=== PATIENT | male | born 1950 | race Caucasian/White ===

== ENCOUNTER → 2018-08-25 | Outpatient (CLI) | payer MEDICARE, OTHER ==
[~2018-08-25] MED LIST: ADVAIR 250-501 EACH INH; ASPIR 8181 MG PO; ATENOLOL 100MG100 MG PO; ATENOLOL 50MG T50 M1 PO; BACTRIM DS TAB1 EACH PO; BUPROPION HCL150 M1 PO; CLEOCIN HCL300 MG PO; COZAAR 50 MG TA50 MG PO; COZAAR100 MG PO; EFFIENT10 MG PO; FOLIC ACID1 MG PO; HYDROCHLOROTHIA25 M2 PO; HYDROCODON-ACE1 EAC5 PO; IBUPROFEN 800800 M1 PO; INDOMETHACIN 5050 MG PO; KEFLEX500 MG PO; LEVAQUIN 500 M500 M1 PO; LEVAQUIN 750 M750 MG PO; LIPITOR 20 MG T20 M1 PO; METHOCARBAMOL750 MG PO; NITROGLYCERIN0.4 MG SUBLING; PERCOCET 5-3251 EACH PO; PREDNISONE 10 M10 MG PO; PROTONIX40 M1 PO; PROVENTIL; ROBAXIN 750 MG750 M1 PO; SERTRALINE HCL100 MG PO; SINGULAIR 10 MG10 M1 PO; VENTOLIN HFA 1818 GM INH; VENTOLIN17 GM; VITAMIN B-1100 M1 PO; ZOLOFT25 MG PO
--- NOTE | 2018-08-25 13:09 | 2DMMODE ---
[place] [address] 2 D/M-MODE ECHOCARDIOGRAM Name: RAJENDRA MARTIN Room: [facility]#: [id number] Admission: 08/25/18 Attend Phys: Tomás Guerin, Discharge: Date of : 52 Date of Service: 08/25/18 1309 Report #: [id number] THIS REPORT FOR: //name// APPROVED REPORT Study performed: 08/25/2018 09:55:49 EXAM: Comprehensive 2D, Doppler, and color-flow Echocardiogram Patient Location: Out-Patient Status: routine BSA: 2.11 HR: 73 bpm BP: 117/69 mmHg Other Information Study Quality: Fair Indications Dyspnea 2D Dimensions IVSd: 11.04 (7-11mm) LVOT Diam: 20.78 (18-24mm) LVDd: 42.67 mm PWd: 10.40 (7-11mm) Ascending Ao: 30.97 (22-36mm) LVDs: 25.95 (25-40mm) Aortic Root: 25.83 mm Volumes Left Atrial Volume (Systole) LA ESV Index: 14.40 mL/m2 Aortic Valve AoV Peak Javier.: 1.44 m/s AO Peak Gr.: 8.25 mmHg LVOT Max P.90 mmHg AO Mean Gr.: 4.79 mmHg LVOT Mean P.11 mmHg LVOT Max V: 1.11 m/s AO V2 VTI: 29.39 cm LVOT Mean V: 0.66 m/s DANY (VTI): 2.62 cm2 LVOT V1 VTI: 22.74 cm Mitral Valve E/A Ratio: 0.86 MV Decel. Time: 211.34 ms MV E Max Javier.: 0.73 m/s MV PHT: 61.29 [place] [address] 2 D/M-MODE ECHOCARDIOGRAM Name: RAJENDRA MARTIN Room: [facility]#: [id number] Admission: 08/25/18 Attend Phys: Tomás Guerin, Discharge: Date of : 52 Date of Service: 08/25/18 1309 Report #: [id number] MVA (PHT): 3.59 cm2 TDI E/Lateral E': 8.11 E/Medial E': 8.11 Medial E' Javier.: 0.09 m/s Lateral E' Javier.: 0.09 m/s Pulmonary Valve PV Peak Javier.: 1.00 m/s PV Peak Gr.: 4.02 mmHg Left Ventricle The left ventricle is normal size. There is normal LV segmental wall motion. There is normal left ventricular wall thickness. Left ventricular systolic function is normal. The left ventricular ejection fraction is within the normal range. LVEF is 55-60%. Grade I - abnormal relaxation pattern. Right Ventricle The right ventricle is normal size. The right ventricular systolic function is normal. Atria The left atrium size is normal. The right atrium size is normal. Aortic Valve The aortic valve is normal in structure. No aortic regurgitation is present. There is no aortic valvular stenosis. Mitral Valve The mitral valve is normal in structure. Trace mitral regurgitation. No evidence of mitral valve stenosis. Tricuspid Valve The tricuspid valve is normal in structure. Trace tricuspid regurgitation. Pulmonic Valve The pulmonary valve is normal in structure. There is no pulmonic valvular regurgitation. Great Vessels The aortic root is normal in size. IVC is normal in size and collapses >50% with inspiration[place] [address] 2 D/M-MODE ECHOCARDIOGRAM Name: RAJENDRA MARTIN Room: [facility]#: [id number] Admission: 08/25/18 Attend Phys: Tomás Guerin, Discharge: Date of : 52 Date of Service: 08/25/18 1309 Report #: [id number] There is no pericardial effusion. <Conclusion> Left ventricular systolic function is normal. The left ventricular ejection fraction is within the normal range. <ELECTRONICALLY SIGNED> By: Luis Montenegro MD, [facility] 08/25/18 1309 1309 Luis Montenegro MD, [facility] /INF
== END ==
LOC: M.CRD 09:42
DX: I25.10 Atherosclerotic heart disease of native coronary artery without angina pectoris (principal); I95.1 Orthostatic hypotension

== ENCOUNTER 2019-07-26 17:53 | Emergency (ER) | payer MEDICARE, OTHER ==
[~2019-07-26] VITALS: Ht 175.3 cm; Wt 86.2 kg
[2019-07-26] MEDS ORDERED: SINGULAIR 10 MG10 M1 PO (18:05)
[2019-07-26] MEDS ORDERED: LEVOXYL125 MCG PO (18:05)
[2019-07-26 18:31] LABS: ABSOLUTE EOSINOPHILS 0.8 thou/uL (0.0-0.7); ABSOLUTE LYMPHOCYTES 3.4 thou/uL (0.8-5.3); ABSOLUTE MONOCYTES 0.8 thou/uL (0.0-1.2); ABSOLUTE NEUTROPHILS 5.4 thou/uL (1.6-8.1); BASOPHILS 0.1 %; EOSINOPHILS 7.8 %; HEMATOCRIT 47.7 % (42.0-52.0); HEMOGLOBIN 16.8 gm/dL (14.0-18.0); LYMPHOCYTES 32.6 %; MCH 32.5 pg (26.0-34.0); MCHC 35.3 g/dL (28.0-37.0); MCV 92.2 fL (80.0-100.0); MONOCYTES 7.9 %; MPV 7.4 fl. (7.2-11.1); NUCLEATED RBCS 0 /100WBC; PLATELET COUNT* 267 thou/uL (150-400); POLYS 51.6 %; RBC 5.17 mil/uL (4.50-6.00); RDW-CV 14.8 % (10.5-14.5); WBC 10.5 thou/uL (4.0-11.0)
[2019-07-26 18:40] LABS: CALCIUM 8.5 mg/dL (8.5-10.1); CREATININE 1.5 mg/dL (0.6-1.3); POTASSIUM 4.3 mmol/L (3.5-5.1)
[2019-07-26 18:51] LABS: ALBUMIN 3.8 g/dL (3.4-5.0); TOTAL BILIRUBIN 0.5 mg/dL (<0.1-1.0); TOTAL PROTEIN 7.2 g/dL (6.4-8.2)
[2019-07-26] MEDS ORDERED: PREDNISONE50 MG PO (21:19)
[2019-07-26 21:42] VITALS: BP 155/58
--- NOTE | 2019-07-27 10:36 | EKG ---
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1950 Requested By: Nawaf Bueno Order Number: [id number] MD: Antwan Rivers Measurements Intervals [place] Rate: 91 P: 5 [place]: 160 QRS: 81 QRSD: 133 T: 51 QT: 409 QTc: 504 Interpretive Statements Sinus rhythm Nonspecific intraventricular conduction delay Anteroseptal infarct, age indeterminate possible Baseline wander in lead(s) II,III,aVF Compared to ECG 08/21/2016 17:43:17 Intraventricular conduction delay now present Myocardial infarct finding now present Electronically Signed On 07-27-2019 10:36:33 CATERING SOUS CHEF by Antwan Rivers [email or web address] <ELECTRONICALLY SIGNED> By: Antwan Rivers MD, [facility] 07/27/19 1036 1829 1829 Antwan Rivers MD, [facility] /EPI
== END 2019-07-26 21:45 | disposition home or self-care (01) ==
LOC: M.ERS 17:53
PROVIDERS: Emergency Medicine
DX: J44.1 Chronic obstructive pulmonary disease with (acute) exacerbation (principal); I10 Essential (primary) hypertension; M10.9 Gout, unspecified; G89.29 Other chronic pain; M54.9 Dorsalgia, unspecified; Z88.1 Allergy status to other antibiotic agents; Z88.5 Allergy status to narcotic agent; Z91.040 Latex allergy status; Z88.6 Allergy status to analgesic agent

== ENCOUNTER 2019-09-01 10:25 | Inpatient (IN) | payer MEDICARE, OTHER ==
[~2019-09-01] VITALS: Ht 175.3 cm; Wt 93.4 kg
[2019-09-01] VITALS (10 sets, daily range): BP systolic 135–187; BP diastolic 85–118
[~2019-09-01 10:25] MED LIST changes: +LEVOXYL125 MCG PO; +PREDNISONE50 MG PO
[2019-09-01 11:04] LABS: ABSOLUTE BASOPHILS 0.1 thou/uL (0.0-0.2); ABSOLUTE EOSINOPHILS 0.2 thou/uL (0.0-0.7); ABSOLUTE LYMPHOCYTES 1.5 thou/uL (0.8-5.3); ABSOLUTE MONOCYTES 0.9 thou/uL (0.0-1.2); ABSOLUTE NEUTROPHILS 11.2 thou/uL (1.6-8.1); BASOPHILS 0.7 %; EOSINOPHILS 1.2 %; HEMATOCRIT 50.7 % (42.0-52.0); HEMOGLOBIN 17.5 gm/dL (14.0-18.0); LYMPHOCYTES 11.1 %; MCH 32.3 pg (26.0-34.0); MCHC 34.6 g/dL (28.0-37.0); MCV 93.5 fL (80.0-100.0); MONOCYTES 6.5 %; MPV 7.1 fl. (7.2-11.1); NUCLEATED RBCS 0 /100WBC; PLATELET COUNT* 265 thou/uL (150-400); POLYS 80.5 %; RBC 5.43 mil/uL (4.50-6.00); RDW-CV 14.5 % (10.5-14.5); WBC 13.9 thou/uL (4.0-11.0)
[2019-09-01 11:23] LABS: CREATININE 1.1 mg/dL (0.6-1.3); POTASSIUM 3.4 mmol/L (3.5-5.1)
[2019-09-01 11:27] LABS: ALBUMIN 3.7 g/dL (3.4-5.0); TOTAL BILIRUBIN 0.5 mg/dL (<0.1-1.0); TOTAL PROTEIN 7.2 g/dL (6.4-8.2)
[2019-09-01 13:10] LABS: INFLUENZA A ANTIGEN Negative (Negative); INFLUENZA B ANTIGEN Negative (Negative)
[2019-09-01 14:58] LABS: PCO2 42.3 mmHg (35.0-45.0); PO2 85.6 mmHg (75.0-100.0); pH 7.367 (7.340-7.450)
[2019-09-01 14:59] LABS: BE -1.6 mmol/L (-2 to +3)
--- NOTE | 2019-09-01 15:22 | EKG ---
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1950 Requested By: Nawaf Bueno Order Number: [id number] MD: Luis Montenegro Measurements Intervals [place] Rate: 123 P: 112 [place]: 169 QRS: 103 QRSD: 108 T: 51 QT: 291 QTc: 417 Interpretive Statements Sinus tachycardia Right axis deviation artifact noted poor r wave progression Compared to ECG 07/26/2019 18:29:13 Sinus rhythm no longer present Intraventricular conduction delay no longer present Electronically Signed On 09-01-2019 15:22:31 PATIENT SCHEDULING MANAGER by Luis Montenegro [email or web address] <ELECTRONICALLY SIGNED> By: Luis Montenegro MD, FAC 09/01/19 1522 1042 1042 Luis Montenegro MD, [facility] /EPI
[2019-09-01] MEDS ORDERED: ABILIFY 5 MG TAB5 MG PO (15:50)
[2019-09-01] MEDS ORDERED: CELEBREX100 MG/1 C PO (15:51)
[2019-09-01] MEDS ORDERED: CHILDREN'S ZYRT10 M1 PO (15:52)
[2019-09-01] MEDS ORDERED: FLOMAX0.4 MG PO (15:53)
[2019-09-01] MEDS ORDERED: NEXIUM40 MG PO (15:53)
[2019-09-01] MEDS ORDERED: INCRUSE ELLI62.5 MCG INH (15:54)
--- NOTE | 2019-09-01 16:43 | 2DMMODE ---
[place] [address] 2 D/M-MODE ECHOCARDIOGRAM Name: RAJENDRA MARTIN Room: [address] IN [facility]#: [id number] Admission: 09/01/19 Attend Phys: Enriqueta Sexton, Discharge: Date of : 52 Date of Service: 09/01/19 1643 Report #: [id number] THIS REPORT FOR: //name// APPROVED REPORT Study performed: 09/01/2019 14:29:01 EXAM: Comprehensive 2D, Doppler, and color-flow Echocardiogram Patient Location: In-Patient Room #: ER Status: routine BSA: 2.10 HR: 99 bpm BP: 139/79 mmHg Rhythm: NSR Other Information Study Quality: Good Indications Elevated Troponin 2D Dimensions IVSd: 10.88 (7-11mm) LVOT Diam: 22.48 (18-24mm) LVDd: 36.67 mm PWd: 11.84 (7-11mm) Ascending Ao: 29.41 (22-36mm) LVDs: 22.99 (25-40mm) Aortic Root: 33.71 mm Volumes Left Atrial Volume (Systole) LA ESV Index: 14.90 mL/m2 Aortic Valve AoV Peak Javier.: 1.45 m/s AO Peak Gr.: 8.46 mmHg LVOT Max P.48 mmHg AO Mean Gr.: 4.96 mmHg LVOT Mean P.18 mmHg LVOT Max V: 1.06 m/s AO V2 VTI: 23.41 cm LVOT Mean V: 0.68 m/s DANY (VTI): 3.10 cm2 LVOT V1 VTI: 18.30 cm Mitral Valve E/A Ratio: 0.64 MV Decel. Time: 217.42 ms MV E Max Javier.: 0.76 m/[place] [address] 2 D/M-MODE ECHOCARDIOGRAM Name: RAJENDRA MARTIN Room: [address] IN .R.#: [id number] Admission: 09/01/19 Attend Phys: Enriqueta Sexton, Discharge: Date of : 52 Date of Service: 09/01/19 1643 Report #: [id number] MV PHT: 63.05 ms MVA (PHT): 3.49 cm2 TDI E/Lateral E': 8.44 E/Medial E': 9.50 Medial E' Javier.: 0.08 m/s Lateral E' Javier.: 0.09 m/s Pulmonary Valve PV Peak Javier.: 1.23 m/s PV Peak Gr.: 6.01 mmHg Left Ventricle The left ventricle is normal size. There is normal LV segmental wall motion. There is normal left ventricular wall thickness. Left ventricular systolic function is hyperdynamic. LVEF is >70%. Transmitral Doppler flow pattern suggests impaired LV relaxation. Right Ventricle The right ventricle is normal size. The right ventricular systolic function is normal. Atria The left atrium size is normal. The right atrium size is normal. Aortic Valve The aortic valve is normal in structure. No aortic regurgitation is present. There is no aortic valvular stenosis. Mitral Valve The mitral valve is normal in structure. Trace mitral regurgitation. No evidence of mitral valve stenosis. Tricuspid Valve The tricuspid valve is normal in structure. There is no tricuspid valve regurgitation noted. Unable to assess PA pressure. Pulmonic Valve Pulmonic valve is not well visualized. There is no pulmonic valvular regurgitation. Great Vessels The aortic root is normal in size. The ascending aorta is normal in size. IVC is normal in size and collapses >50% [place] [address] 2 D/M-MODE ECHOCARDIOGRAM Name: RAJENDRA MARTNI MINISTERIO Room: [address] IN [facility]#: [id number] Admission: 09/01/19 Attend Phys: Enriqueta Sexton, Discharge: Date of : 52 Date of Service: 09/01/19 1643 Report #: [id number] Pericardium There is no pericardial effusion. <Conclusion> The left ventricle is normal size. There is normal left ventricular wall thickness. Left ventricular systolic function is hyperdynamic. LVEF is >70%. Trace mitral regurgitation. IVC is normal in size and collapses >50% with inspiration. <ELECTRONICALLY SIGNED> By: Tomás Guerin MD, FACC 09/01/19 1643 164 164 Tomás Guerin MD, FACC /INF
[2019-09-02] VITALS (9 sets, daily range): BP systolic 112–151; BP diastolic 65–95
[2019-09-02 07:15] LABS: CHOLESTEROL 159 mg/dL (<200); HDL CHOLESTEROL 69 mg/dL (>40); LDL CHOLESTEROL 77 mg/dL (<100); SERUM ASSESSMENT Clear; TC:HDL 2.3 Ratio (Not establshd); TRIGLYCERIDE 66 mg/dL (<150); VLDL 13 mg/dL (<40)
--- NOTE | 2019-09-02 17:15 | CARDNUC ---
[place] [address] CARDIAC NUCLEAR IMAGING REPORT Name: RAJENDRA MARTIN Room: [address] IN [facility]#: [id number] Admission: 09/01/19 Attend Phys: Enriqueta Sexton, Discharge: Date of : 52 Date of Service: 09/02/19 1714 Report #: [id number] THIS REPORT FOR: //name// APPROVED REPORT Imaging Protocol: Rest Tc-99m/Stress Tc-99m 1 day Study performed: 09/01/2019 16:15:00 Indication: Troponin elevation Patient Location: In-Patient Room #: icu-3 Stress Tech: Jing Lugo Stress Nurse: Yuliet Giles RN Ht: 5 ft 9 in Wt: 206 lbs BSA: 2.09 m2 BMI: 30.41 Medical History Medical History: CAD non obstructive, COPD, Hyperlipidemia, HTN Medications: asa-81, atorvastatin, losartan Allergies: latex, morphine, tetracycline, levofloxacin Cardiac Risk Factors: Age, Hyperlipidemia, HTN, Tobacco History (Former) Resting Data Rest SPECT myocardial perfusion imaging was performed in supine position 60 minutes following the intravenous injection of 10.54 mCi of Tc-99m Sestamibi. Time of rest injection: 09:45 The images were gated to evaluate regional wall motion and calculate left ventricular ejection fraction. Administration Route: IV Administration Site: Right AC Pharmacologic Stress Pharmacologic stress test was performed by injecting Regadenoson 0.4 mg IV push over 10-15 seconds immediately followed by the intravenous injection of 33.1 mCi of Tc-99m Sestamibi. Time of stress injection: 12:15 Administration Route: IV Administration Site: Right AC Heart Rate at time of stress injection: 118 bpm. Gated Stress SPECT was performed 60 [place] [address] CARDIAC NUCLEAR IMAGING REPORT Name: RAJENDRA MARTIN Room: [address] IN ..#: [id number] Admission: 09/01/19 Attend Phys: Enriqueta Sexton, Discharge: Date of : 52 Date of Service: 09/02/19 1714 Report #: [id number] The images were gated to evaluate regional wall motion and calculate left ventricular ejection fraction. Stress Test Details Stress Test: Pharmacologic stress testing performed using 0.4 mg of regadenoson per 5 mL given IV over 10 seconds. Reason for pharmacologic stress test: physical limitation. HR Max Heart Rate (APMHR): 152 bpm Resting HR: 94 bpm Target HR (85% APMHR): 129 bpm Max HR Achieved: 118 bpm % of APMHR: 77 Recovery HR: 108 bpm BP Resting BP: 145/81 mmHg Max BP: 162/119 mmHg Recovery BP: 157/86 mmHg ECG Resting ECG: Sinus Rhythm Stress ECG: Sinus Tachycardia ST Change: None Arrhythmia: None Recovery ECG: Sinus Rhythm Recovery ST Change: None Recovery Arrhythmia: None Clinical Reason for Termination: Completed protocol The patient tolerated Lexiscan infusion without significant cardiac symptoms. Stress ECG Conclusion Baseline 12-lead EKG show sinus rhythm without significant ST segment or T wave abnormality. EKGs obtained during and post Lexiscan infusion show sinus rhythm and sinus tachycardia with no significant ST segment or T wave changes when compared baseline. There were no significant stress-induced arrhythmias. Study Quality Study: Good Artifact: No artifact Study Data At rest, the left ventricular ejection fraction was 85%.. Post stress, the left ventricular ejection was 85%.. [place] [address] CARDIAC NUCLEAR IMAGING REPORT Name: RAJENDRA MARTIN Room: [address]#: [id number] Admission: 09/01/19 Attend Phys: Enriqueta Sexton, Discharge: Date of : 52 Date of Service: 09/02/19 1714 Report #: [id number] TID = 1.33. Perfusion There is a moderate size moderate intensity reversible defect involving the basal to mid inferior wall. No other significant defects were identified. Wall Motion There is focal hypokinesis noted the basal portion the inferior wall. Global LV systolic function is preserved. Nuclear Conclusion ECG Findings: negative for ischemia Clinical Findings: negative for ischemia Nuclear Findings: positive for ischemia Exercise Capacity: not assessed Left Ventricular Function: preserved Risk Study: moderate Perfusion images suggest stress-induced ischemia involving the basal to mid inferior wall area global LV systolic function is fairly well-preserved. His is a moderate risk study. <Conclusion> Baseline 12-lead EKG show sinus rhythm without significant ST segment or T wave abnormality. EKGs obtained during and post Lexiscan infusion show sinus rhythm and sinus tachycardia with no significant ST segment or T wave changes when compared baseline. There were no significant stress-induced arrhythmias. <ELECTRONICALLY SIGNED> By: Tomás Guerin MD, FACC 09/02/19 1714 171 171 Tomás Guerin MD, FACC /INF
[2019-09-03 03:50] VITALS: BP 156/98
[2019-09-03 04:43] LABS: HEMATOCRIT 46.8 % (42.0-52.0); HEMOGLOBIN 15.8 gm/dL (14.0-18.0); MCH 31.9 pg (26.0-34.0); MCHC 33.7 g/dL (28.0-37.0); MCV 94.8 fL (80.0-100.0); MPV 7.1 fl. (7.2-11.1); RBC 4.94 mil/uL (4.50-6.00)
[2019-09-03 05:05] LABS: CALCIUM 9.2 mg/dL (8.5-10.1); CREATININE 1.4 mg/dL (0.6-1.3); POTASSIUM 4.1 mmol/L (3.5-5.1); TROPONIN-I LEVEL 0.06 ng/mL (<0.06)
[2019-09-03 07:23] VITALS: BP 157/91
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
[2019-09-03 12:24] VITALS: BP 154/83
[2019-09-03 15:54] VITALS: BP 138/74
[2019-09-03 20:00] VITALS: BP 169/96
[2019-09-04] VITALS: BP 177/94
[2019-09-04 04:00] VITALS: BP 157/82
[2019-09-04 05:14] LABS: HEMATOCRIT 47.1 % (42.0-52.0); MCH 31.9 pg (26.0-34.0); MCV 93.8 fL (80.0-100.0); MPV 6.8 fl. (7.2-11.1); RBC 5.02 mil/uL (4.50-6.00); RDW-CV 14.9 % (10.5-14.5); WBC 15.6 thou/uL (4.0-11.0)
[2019-09-04 05:33] LABS: CALCIUM 8.8 mg/dL (8.5-10.1); CREATININE 1.3 mg/dL (0.6-1.3); MAGNESIUM 2.4 mg/dL (1.8-2.4); POTASSIUM 4.4 mmol/L (3.5-5.1)
[2019-09-04 07:15] VITALS: BP 163/97
[2019-09-04 11:28] VITALS: BP 139/79
[2019-09-04 16:18] VITALS: BP 127/84
[2019-09-04 20:00] VITALS: BP 154/75
[2019-09-05] VITALS: BP 144/87
[2019-09-05 04:00] VITALS: BP 149/82
[2019-09-05 10:24] LABS: HEMATOCRIT 49.7 % (42.0-52.0); HEMOGLOBIN 17.1 gm/dL (14.0-18.0); MCH 32.1 pg (26.0-34.0); MCHC 34.4 g/dL (28.0-37.0); MCV 93.3 fL (80.0-100.0); MPV 6.9 fl. (7.2-11.1); NUCLEATED RBCS 0 /100WBC; PLATELET COUNT* 331 thou/uL (150-400); RBC 5.33 mil/uL (4.50-6.00); RDW-CV 14.5 % (10.5-14.5); WBC 15.2 thou/uL (4.0-11.0)
[2019-09-05 10:33] LABS: CALCIUM 9.1 mg/dL (8.5-10.1); CREATININE 1.5 mg/dL (0.6-1.3); POTASSIUM 4.5 mmol/L (3.5-5.1)
[2019-09-05 10:50] LABS: ABSOLUTE EOSINOPHILS 0.2 thou/uL (0.0-0.7); ABSOLUTE LYMPHOCYTES 0.9 thou/uL (0.8-5.3); ABSOLUTE MONOCYTES 0.8 thou/uL (0.0-1.2); ABSOLUTE NEUTROPHILS 13.4 thou/uL (1.6-8.1)
[2019-09-05 10:51] LABS: ANISOCYTOSIS 1+; PLATELET ESTIMATE ADEQUATE; POIKILOCYTOSIS 1+
[2019-09-05 12:03] VITALS: BP 146/88
[2019-09-05 17:07] VITALS: BP 140/79
[2019-09-05 20:00] VITALS: BP 137/86
[2019-09-06] VITALS: BP 158/82
[2019-09-06 05:18] LABS: ABSOLUTE BASOPHILS 0.1 thou/uL (0.0-0.2); ABSOLUTE LYMPHOCYTES 1.8 thou/uL (0.8-5.3); ABSOLUTE MONOCYTES 0.8 thou/uL (0.0-1.2); ABSOLUTE NEUTROPHILS 14.6 thou/uL (1.6-8.1); BASOPHILS 0.5 %; HEMATOCRIT 50.7 % (42.0-52.0); HEMOGLOBIN 17.7 gm/dL (14.0-18.0); LYMPHOCYTES 10.3 %; MCH 32.6 pg (26.0-34.0); MCV 93.2 fL (80.0-100.0); MONOCYTES 4.9 %; MPV 6.6 fl. (7.2-11.1); NUCLEATED RBCS 0 /100WBC; PLATELET COUNT* 344 thou/uL (150-400); POLYS 84.3 %; RBC 5.43 mil/uL (4.50-6.00); RDW-CV 14.3 % (10.5-14.5); WBC 17.3 thou/uL (4.0-11.0)
[2019-09-06 05:33] LABS: CREATININE 1.6 mg/dL (0.6-1.3); POTASSIUM 5.2 mmol/L (3.5-5.1)
[2019-09-06 08:00] VITALS: BP 156/91
[2019-09-06 12:07] VITALS: BP 100/62
[2019-09-06 19:40] VITALS: BP 154/93
[2019-09-07 00:54] VITALS: BP 120/66; BP 141/84
[2019-09-07 04:00] VITALS: BP 131/90
[2019-09-07 07:40] VITALS: BP 161/104
[2019-09-07] MEDS ORDERED: AZITHROMYCIN 2250 MG PO (08:01)
[2019-09-07] MEDS ORDERED: ASPIRIN325 PO (08:01)
[2019-09-07] MEDS ORDERED: CEFDINIR300 MG PO (08:01)
[2019-09-07] MEDS ORDERED: PREDNISONE 10 M10 MG PO (08:01)
[2019-09-07] MEDS ORDERED: MUCINEX600 MG PO (08:01)
[2019-09-07 10:11] VITALS: BP 161/104
[2019-09-07 14:09] VITALS: BP 161/104
== END 2019-09-07 14:10 | disposition home or self-care (01) | DRG 177 ==
LOC: M.ERS 10:25 → M.ICU 11:49 → M.TBA-ER 11:49 → M.ICU 15:13 → M.2W 09-02 17:00 → M.ORTHSURG 09-06 17:42
PROVIDERS: Emergency Medicine; Internal Medicine; Internal Medicine Cardiovascular Disease; ADMIT Internal Medicine
DX: J15.6 Pneumonia due to other Gram-negative bacteria (principal); I21.A1 Myocardial infarction type 2; J96.21 Acute and chronic respiratory failure with hypoxia; J44.1 Chronic obstructive pulmonary disease with (acute) exacerbation; J44.0 Chronic obstructive pulmonary disease with (acute) lower respiratory infection; M54.9 Dorsalgia, unspecified; G89.29 Other chronic pain; I10 Essential (primary) hypertension; M10.9 Gout, unspecified; E78.5 Hyperlipidemia, unspecified; J40 Bronchitis, not specified as acute or chronic; I25.119 Atherosclerotic heart disease of native coronary artery with unspecified angina pectoris; Z79.899 Other long term (current) drug therapy; Z88.5 Allergy status to narcotic agent; Z88.8 Allergy status to other drugs, medicaments and biological substances; Z88.1 Allergy status to other antibiotic agents; Z91.040 Latex allergy status; Z23 Encounter for immunization

== ENCOUNTER 2020-03-13 10:29 | Observation (INO) | payer MEDICARE, OTHER ==
[2020-03-13] VITALS (12 sets, daily range): BP systolic 124–181; BP diastolic 76–104
[~2020-03-13] VITALS: Ht 175.3 cm; Wt 87.1 kg
[~2020-03-13 10:29] MED LIST changes: +ABILIFY 5 MG TAB5 MG PO; +ASPIRIN325 PO; +AZITHROMYCIN 2250 MG PO; +CEFDINIR300 MG PO; +CELEBREX100 MG/1 C PO; +CHILDREN'S ZYRT10 M1 PO; +COZAAR 25 MG TA25 MG PO; +DYAZIDE 37.5-21 EACH PO; +FLOMAX0.4 MG PO; +INCRUSE ELLI62.5 MCG INH; +MUCINEX600 MG PO; +NEXIUM40 MG PO; +SYNTHROID25 MC1 PO
[2020-03-13 10:56] LABS: HEMATOCRIT 55.2 % (42.0-52.0); HEMOGLOBIN 18.8 gm/dL (14.0-18.0); MCH 32.1 pg (26.0-34.0); MCHC 34.1 g/dL (28.0-37.0); MCV 94.3 fL (80.0-100.0); MPV 7.5 fl. (7.2-11.1); RBC 5.85 mil/uL (4.50-6.00); RDW-CV 13.7 % (10.5-14.5); WBC 22.3 thou/uL (4.0-11.0)
[2020-03-13 11:09] LABS: ANION GAP 2 mmol/L (7-16); BUN 16 mg/dL (7-18); CALCIUM 9.4 mg/dL (8.5-10.1); CHLORIDE 101 mmol/L (98-107); CO2 37 mmol/L (21-32); CREATININE 1.3 mg/dL (0.6-1.3); GLUCOSE 80 mg/dL (70-99); POTASSIUM 3.5 mmol/L (3.5-5.1); SODIUM 140 mmol/L (136-145)
[2020-03-13 11:10] LABS: APTT 22.6 Seconds (25.0-31.3); PROTIME 10.6 Seconds (9.20-11.50)
[2020-03-13 11:13] LABS: ALBUMIN 3.7 g/dL (3.4-5.0); ALKALINE PHOSPHATASE 89 U/L (46-116); CHOLESTEROL 201 mg/dL (<200); HDL CHOLESTEROL 84 mg/dL (>40); LDL CHOLESTEROL 77 mg/dL (<100); SGOT 10 U/L (15-37); SGPT 30 U/L (30-65); TC:HDL 2.4 Ratio (Not establshd); TOTAL BILIRUBIN 0.4 mg/dL (<0.1-1.0); TOTAL PROTEIN 7.2 g/dL (6.4-8.2); TRIGLYCERIDE 201 mg/dL (<150); VLDL 40 mg/dL (<40)
[2020-03-13 11:15] LABS: SERUM ASSESSMENT Clear
--- NOTE | 2020-03-13 19:18 | EKG ---
[place] [address] ELECTROCARDIOGRAM REPORT Name: RAJENDRA MARTIN Room: [address] M.R.#: [id number] Admission: 03/13/20 Attend Phys: Tomás Guerin, Discharge: Date of : 52 Date of Service: 03/13/20 1104 Report #: [id number] THIS REPORT FOR: //name// [facility] Test Date: 2020-03-13 Test Time: 11:04:50 Pat Name: RAJENDRA MARTIN Department: Room: 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 : 1950 Requested By: Tomás Guerin Order Number: [id number] Reading MD: Tomás Guerin Measurements Intervals [place] Rate: 75 P: 54 [place]: 142 QRS: 81 QRSD: 98 T: 54 QT: 377 QTc: 421 Interpretive Statements Sinus rhythm Borderline right axis deviation Borderline low voltage, extremity leads Compared to ECG 09/01/2019 10:42:36 Sinus tachycardia no longer present Poor R-wave progression no longer present Electronically Signed On 03-13-2020 17:44:01 CDT by Tomás Guerin [email or web address] <ELECTRONICALLY SIGNED> By: Tomás Guerin MD, FACC 03/13/20 1744 1104 1104 Tomás Guerin MD, FAC /EPI
[2020-03-14] VITALS: BP 139/83
[2020-03-14 04:00] VITALS: BP 151/95
[2020-03-14 04:49] LABS: HEMATOCRIT 46.7 % (42.0-52.0); MCH 32.7 pg (26.0-34.0); MCHC 34.7 g/dL (28.0-37.0); MCV 94.1 fL (80.0-100.0); MPV 7.1 fl. (7.2-11.1); RBC 4.96 mil/uL (4.50-6.00); RDW-CV 13.4 % (10.5-14.5); WBC 13.2 thou/uL (4.0-11.0)
[2020-03-14 04:57] LABS: HEMOGLOBIN 16.2 gm/dL (14.0-18.0)
[2020-03-14 05:21] LABS: ALBUMIN 2.9 g/dL (3.4-5.0); CALCIUM 8.1 mg/dL (8.5-10.1); CREATININE 1.2 mg/dL (0.6-1.3); POTASSIUM 3.6 mmol/L (3.5-5.1); TOTAL BILIRUBIN 0.4 mg/dL (<0.1-1.0); TOTAL PROTEIN 5.6 g/dL (6.4-8.2)
[2020-03-14 08:36] VITALS: BP 117/77
[2020-03-14] MEDS ORDERED: ASPIR 8181 MG PO (08:37)
[2020-03-14] MEDS ORDERED: EFFIENT10 MG PO (08:37)
--- NOTE | 2020-03-14 09:21 | NUR ---
ASSUMED CARE OF PT THIS AM AROUND 0715- SERVICE AIDE IN PLACE ORDERED, TRACING SR- UPON ASSESSMENT PT NOTED TO BE RESTING IN BED- PT A&O X4- CONT OF BOWEL AND BLADDER- UP AD-KIMBERLY IN ROOM, STEADY GAIT NOTED- DIMINISHED LUNG SOUNDS NOTED WITH AUDIBLE WHEEZING- DYSPNEA NOTED ON EXERTION- VSS, O2 SAT 94% ON RA THIS AM- ABD SOFT/ROUND/NON-TENDER, BS X4 QUADS- LAST BM REPORTED 03/13/20- IV NOTED TO RIGHT AC INTACT AND SL- RIGHT GROIN POST CATH SITE NOTED WITH DRESSING C/D/I, SLIGHT BRUSING; LEFT POST CATH SITE WITH DRSG C/D/I; NO HEMATOMA NOTED- GOOD PO INTAKE NOTED THIS AM WITH BREAKFAST- PT DENIES ANY C/O PAIN/DISCOMFORT AT THIS TIME- CALL LIGHT AND PERSONAL BELONGINGS WITH IN REACH- ALL NEEDS MET AT THIS TIME-WCTM
--- NOTE | 2020-03-15 08:38 | EKG ---
[place] [address] ELECTROCARDIOGRAM REPORT Name: RAJENDRA MARTIN Room: [address]#: [id number] Admission: 03/13/20 Attend Phys: Tomás Guerin, Discharge: 03/14/20 Date of : 52 Date of Service: 03/13/20 1606 Report #: [id number] THIS REPORT FOR: //name// [facility] Test Date: 2020-03-13 Test Time: 16:06:41 Pat Name: RAJENDRA MARTIN Department: Room: [facility] Gender: M R D Intern: : 1950 Requested By: Tomás Guerin Order Number: [id number] Reading MD: Tomás Guerin Measurements Intervals [place] Rate: 67 P: 64 [place]: 158 QRS: 83 QRSD: 103 T: 65 QT: 392 QTc: 414 Interpretive Statements Sinus rhythm Borderline right axis deviation Borderline low voltage, extremity leads Compared to ECG 03/13/2020 11:04:50 No significant changes Electronically Signed On 03-15-2020 8:37:20 CDT by Tomás Guerin [email or web address] <ELECTRONICALLY SIGNED> By: Tomás Guerin MD, FAC 03/15/20 0837 1606 1606 Tomás Guerin MD, [facility] /EPI
--- NOTE | 2020-03-15 08:57 | EKG ---
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 : 1950 Requested By: Tomás Guerin Order Number: [id number] Reading MD: Tomás Guerin Measurements Intervals [place] Rate: 73 P: 72 NE: 145 QRS: 101 QRSD: 99 T: 59 QT: 428 QTc: 472 Interpretive Statements Sinus rhythm Right axis deviation Borderline low voltage, extremity leads Compared to ECG 03/13/2020 16:06:41 No significant changes Electronically Signed On 03-15-2020 8:56:23 CDT by Tomás Guerin [email or web address] <ELECTRONICALLY SIGNED> By: Tomás Guerin MD, FACC 03/15/20 0856 0851 0851 Tomás Guerin MD, [facility] /EPI
--- NOTE | 2020-03-15 09:15 | D ---
[facility] [address] [place] [address] DISCHARGE SUMMARY Name: RAJENDRA MARTIN Room: [address] Josue Zaidi#: [id number] Admission: 03/13/20 Attend Phys: Tomás Guerin MD Discharge: 03/14/20 Date of : 52 Report #: [id number] THIS REPORT FOR: //name// cc: Andrés Hutchison MD, K. Gay MD ~ THIS REPORT FOR: //name// CC: Sayda Guerin DISCHARGE DIAGNOSES: 1. Coronary artery disease. 2. Unstable angina. 3. Hypertension. 4. Dyslipidemia. PROCEDURES DURING THE HOSPITALIZATION: 1. Coronary angiography. 2. Left heart catheterization. 3. Percutaneous coronary intervention to the first obtuse marginal branch. HOSPITAL COURSE: The patient was admitted through the catheterization lab. He underwent coronary angiography and left heart catheterization that showed normal LV systolic function. He had 90% stenosis of the first obtuse marginal branch, for which he had a 2.0 mm x 12 mm drug-eluting stent placed without complication. The patient tolerated the procedure well and was recovered in usual fashion. He is being discharged uneventfully. DISCHARGE MEDICATIONS: Will include albuterol inhaler as directed, Abilify 5 mg daily, atorvastatin 80 mg daily, bupropion 150 mg b.i.d., Celebrex 100 mg daily, Zyrtec 10 mg daily, folate 1 mg daily, Synthroid 25 mcg daily, Cozaar 25 mg daily, Singulair 10 mg nightly, Nitrostat sublingual p.r.n., Maxzide 25 one tablet daily, Incruse Ellipta inhaler daily as directed, Effient 10 mg daily, aspirin 81 mg daily. DISPOSITION: The patient will follow up with Cardiology in 4 weeks. <ELECTRONICALLY SIGNED> By: Tomás Guerin MD, FACC 03/15/20 0915 0842 0939Mickatlin Guerin MD, FAC /nt
--- NOTE | 2020-03-20 14:15 | CARD ---
[address] [address] CARDIAC CATH REPORT Name: RAJENDRA MARTIN Room: [address] Josue M.Joelle#: [id number] Admission: 03/13/20 Attend Phys: Tomás Guerin MD Discharge: 03/14/20 Date of : 52 Report #: [id number] THIS REPORT FOR: //name// cc: Andrés Hutchison MD, K. Gay MD ~ ADDENDUM APPROVED REPORT Study performed: 03/13/2020 12:21:20 Patient Details Patient Status: OP Room #: The patient is a 69 year-old male Event Personnel Osmani Meade RTR Monitor, Lisa Waldron RTR Scrub, Marce Gaming RN RN, Patsy Roberts RN RN, Tomás Guerin Car Groomer, Antwan Rivers Slurry Worker Procedures Performed Left Heart Cath w/or w/o Coronaries , LHC , MAGALIS Place w/wo Plasty Addl BR OM 1 DESADDL , Hemostasis w/ Angioseal Hemostasis w/ Mynx Indication Unstable angina Risk Factors Hypercholesterolemia, Hypertension Admission/Lab Medications/Medications given during procedure Lidocaine Subcut 20 ml, Fentanyl IV 25 mcg, Midazolam (Versed) IV 1 mg, Angiomax IV 13.5 ml, Angiomax IV 30.55 ml per hr, Nitroglycerin IC 200 mcg, Angiomax IV 3 ml, Effient PO 60 mg Procedure Narrative The patient was brought electively to the Cardiac Catheterization Laboratory and was prepped and draped in a sterile manner. The left femoral was infiltrated with 2% Lidocaine subcutaneous anesthesia. A [place] 6 FR sheath was inserted into the left femoral artery. Coronary angiography was performed using coronary diagnostic catheters. The right coronary system was accessed and visualized with a Diagnostic JR4 6Fr catheter. The left coronary system was accessed and visualized with a Diagnostic JL4 6Fr catheter. The left ventricle was accessed and visualized with a Diagnostic [address] [place] [address] CARDIAC CATH REPORT Name: RAJENDRA MARTIN MINISTERIO [address]#: [id number] Admission: 03/13/20 Attend Phys: Tomás Guerin MD Discharge: 03/14/20 Date of : 52 Report #: [id number] catheter. Closure device was deployed with a 6 Fr Angioseal. The patient tolerated the procedure well and there were no complications associated with the procedure. There was no hematoma. Intraoperative Conscious Sedation Sedation start time: 1306 Case end Time: 1416 Fentanyl 25 mcg Versed 2 mg Fluoro Time: 14.8 minutes Dose: DAP 251981 cGycm2 2906.32 mGy Contrast Type and Amount: Visipaque 300 ml Coronary Angiography The patient's coronary anatomy is right dominant. Diagnostic Cath Left Main The left main coronary artery is normal and trifurcates into a left anterior descending, intermediate ramus and circumflex branch. LAD The left anterior descending coronary artery has a 50% ostial narrowing. The proximal to mid vessel has 40% narrowing. The distal vessel is free of significant disease. Diagonal 1 The first diagonal branch is mildly plaqued without hemodynamically significant stenoses. Circumflex The circumflex coronary artery exhibits 50% ostial narrowing. The mid and distal vessel are mildly plaqued. OM1 A large branch first obtuse marginal has a focal 80% stenoses at the bifurcation of its distal branches. Right Coronary The right coronary artery has widely patent stents extending from the proximal to distal vessel. R PDA A right PDA appears free of significant disease. RPLV The right posterior lateral branch is totally occluded at its origin and fills by amwe-zp-bunis collateral. Left Ventriculography The left ventricle is normal in size with normal contractility. The left ventricular ejection fraction is estimated to be 65%. Left ventricular wall motion abnormalities are not present. Hemodynamics The aortic pressure is 155/80 mmHg with a mean of 107 mmHg. The left ventricular pressure is 168/6 mmHg with a mean of mmHg. The left ventricular end diastolic pressure is 21 [place] [address] CARDIAC CATH REPORT Name: MARTINRAJENDRA MINISTERIO Room: [address] Josue Zaidi#: [id number] Admission: 03/13/20 Attend Phys: Tomás Guerin MD Discharge: 03/14/20 Date of : 52 Report #: [id number] PCI Technique Lesion Anticoagulation was achieved with Angiomax. Percutaneous coronary intervention was performed on the first obtuse marginal branch segment. The lesion stenosis prior to intervention was 80% with JUDD 3 flow. A 6F XB LAD 3.5 Guide Catheter was used to engage the left ostium. A BMW 190cm Interventional Guidewire was used to cross the lesion. BALLOON DILATION A Balloon catheter Mini Trek RX 1.5 X 8 was inserted and inflated up to 17.00atm for 24seconds. A Balloon Catheter NC Trek RX 2.0 x 8 was inserted and inflated up to 12 henrietta for 12 seconds. Additional Inflation: 14 henrietta for 7 seconds. STENT DEPLOYMENT A drug-eluting stent Lyons RX Stent 2.0X8mm was inserted and inflated up to 10.00atm for 12seconds. Additional Inflation: 10.00atm for 8seconds. Final angiography reveals 0 % stenosis with JUDD 3 flow. Conclusion 1. Widely patent stents in the proximal to distal right coronary artery. 2. Significant stenoses of the first obtuse marginal branch of the circumflex coronary artery. 3. Normal left ventricular systolic function. 4. Mildly elevated left ventricular end-diastolic pressure. 5. Successful PCI with deployment of drug-eluting stent at the site of 80% stenosis in the mid to distal portion of the first marginal branch of the circumflex with 0% residual narrowing and JUDD-3 flow to the distal vessel Recommendations Cardiac Risk Reduction Program Aggressive Medical Therapy 1. Continue aggressive risk factor modification. 2. Percutaneous coronary intervention to the first obtuse marginal branch. Medications Administered Aspirin (any) Prasugrel [address] [address] CARDIAC CATH REPORT Name: RAJENDRA MARTIN Room: [place] [address] JANETTE Zaidi#: [id number] Admission: 03/13/20 Attend Phys: Tomás Guerin MD Discharge: 03/14/20 Date of : 52 Report #: [id number] Diagnostic Cath Approved by: Tomás Guerin MD Date/Time: 03/15/2020 12:03:34 <ELECTRONICALLY SIGNED> By: Tomás Guerin MD, FACC 03/20/20 1415 1415 1415Michaedanielle Guerin MD, FACC /INF
== END 2020-03-14 10:56 | disposition home or self-care (01) ==
LOC: M.CL 10:29 → M.2W 14:25 → M.TBA-CV 14:25 → M.2W 14:56
PROVIDERS: ADMIT Internal Medicine Cardiovascular Disease; ATTEND Internal Medicine Cardiovascular Disease
DX: I25.110 Atherosclerotic heart disease of native coronary artery with unstable angina pectoris (principal); I10 Essential (primary) hypertension; E78.5 Hyperlipidemia, unspecified

== ENCOUNTER → 2020-04-24 | Outpatient (CLI) | payer MEDICARE, OTHER ==
[~2020-04-24] MED LIST changes: +AZELASTINE205.5 MCG/ NARES; +BAYER CHEWABLE81 MG PO; +COZAAR 50 MG TA50 M1 PO; +ESOMEPRAZOLE MA40 MG PO; +INDERAL LA120 M1 PO; +LIPITOR80 MG PO; +PERCOCET 10-321 EAC1 PO; +PREDNISONE 5 MG5 M1 PO; +PROAIR HFA8.5 GM INH; +SYMBICORT80 MCG/4.1 INH; +TRAZODONE HCL50 MG PO
--- NOTE | 2020-04-24 16:18 | 2DMMODE ---
[place] [address] 2 D/M-MODE ECHOCARDIOGRAM Name: RAJENDRA MARTIN Room: [employer]#: [id number] Admission: 04/24/20 Attend Phys: Tomás Guerin, Discharge: Date of : 52 Date of Service: 04/24/20 1617 Report #: [id number] THIS REPORT FOR: cc: Andrés Hutchison MD, K. Gay MD Liston, Michael J. MD [facility] ~ APPROVED REPORT Study performed: 04/24/2020 13:50:59 EXAM: Comprehensive 2D, Doppler, and color-flow Echocardiogram Patient Location: Out-Patient BSA: 2.09 HR: 88 bpm BP: 122/78 mmHg Other Information Study Quality: Fair Indications Dyspnea 2D Dimensions IVSd: 10.24 (7-11mm) LVOT Diam: 20.46 (18-24mm) LVDd: 30.46 mm PWd: 11.15 (7-11mm) Ascending Ao: 31.44 (22-36mm) LVDs: 19.92 (25-40mm) Aortic Root: 26.09 mm Volumes Left Atrial Volume (Systole) LA ESV Index: 9.10 mL/m2 Aortic Valve AoV Peak Javier.: 1.63 m/s AO Peak Gr.: 10.57 mmHg LVOT Max P.36 mmHg AO Mean Gr.: 5.27 mmHg LVOT Mean P.73 mmHg LVOT Max V: 1.16 m/s AO V2 VTI: 25.07 cm LVOT Mean V: 0.76 m/s DANY (VTI): 3.26 cm2 LVOT V1 VTI: 24.86 cm Mitral Valve E/A Ratio: 0.59 [place] [address] 2 D/M-MODE ECHOCARDIOGRAM Name: RAJENDRA MARTIN Room: [employer]#: [id number] Admission: 04/24/20 Attend Phys: Tomás Guerin, Discharge: Date of : 52 Date of Service: 04/24/20 1617 Report #: [id number] MV Decel. Time: 348.09 ms MV E Max Javier.: 0.53 m/s MV PHT: 100.94 ms MVA (PHT): 2.18 cm2 TDI E/Lateral E': 8.83 E/Medial E': 7.57 Medial E' Javier.: 0.07 m/s Lateral E' Javier.: 0.06 m/s Pulmonary Valve PV Peak Javier.: 0.98 m/s PV Peak Gr.: 3.85 mmHg Left Ventricle The left ventricle is normal size. There is normal LV segmental wall motion. There is normal left ventricular wall thickness. Left ventricular systolic function is vigorous. LVEF is >70%. Grade I - abnormal relaxation pattern. Right Ventricle The right ventricle is normal size. The right ventricular systolic function is normal. Atria The left atrium size is normal. The right atrium size is normal. Aortic Valve The aortic valve is normal in structure. No aortic regurgitation is present. There is no aortic valvular stenosis. Mitral Valve The mitral valve is normal in structure. There is no mitral valve regurgitation noted. No evidence of mitral valve stenosis. Tricuspid Valve The tricuspid valve is normal in structure. There is no tricuspid valve regurgitation noted. Pulmonic Valve The pulmonary valve is normal in structure. There is no pulmonic valvular regurgitation. Great Vessels The aortic root is normal in size. IVC is normal in size and collapses >50% [place] [address] 2 D/M-MODE ECHOCARDIOGRAM Name: ARJENDRA MARTIN MINISTERIO Room: [facility] [employer]#: [id number] Admission: 04/24/20 Attend Phys: Tomás Guerin, Discharge: Date of : 52 Date of Service: 04/24/20 1617 Report #: [id number] Pericardium There is no pericardial effusion. <Conclusion> The left ventricle is normal size. There is normal left ventricular wall thickness. Left ventricular systolic function is vigorous. LVEF is >70%. Grade I - abnormal relaxation pattern. IVC is normal in size and collapses >50% with inspiration. <ELECTRONICALLY SIGNED> By: Tomás Guerin MD, FACC 04/24/201616 16 16 Tomás Guerin MD, FACC /INF
== END ==
LOC: M.CRD 13:43
PROVIDERS: ATTEND Internal Medicine Cardiovascular Disease
DX: I25.10 Atherosclerotic heart disease of native coronary artery without angina pectoris (principal); R06.02 Shortness of breath; R06.00 Dyspnea, unspecified

== ENCOUNTER 2020-04-26 15:36 | Observation (INO) | payer MEDICARE, OTHER ==
[~2020-04-26] VITALS: Ht 175.3 cm; Wt 91.7 kg
--- NOTE | ~2020-04-26 | EEG ---
[address] [address] EEG STUDY REPORT Name: RAJENDRA MARTIN MINISTERIO Room: [address] Dyan#: [id number] Admission: 04/26/20 Attend Phys: Jen Wood Discharge: Date of : 52 Report #: [id number] THIS REPORT FOR: //name// CC: Andrés Cordeor DATE OF SERVICE: 04/27/2020 This patient is being evaluated for altered mental status. EEG was done by placing the electrode by standard 10-20 system of electrode placement. Both referential and sequential montages were used for recording. Background activity in this patient's EEG is about 9 Hz and 30 microvolts. The patient went to sleep and that is associated with bilateral slowing and vertex sharp waves. Photic stimulation is unremarkable. Throughout the record, no active epileptiform activity was noted. IMPRESSION: This patient's EEG is unremarkable. Thank you very much for this referral. By: 1144 1148Scot Olguin MD /nt
--- NOTE | ~2020-04-26 | CON ---
[address] [address] CONSULTATION Name: RAJENDRA MARTIN MINISTERIO Room: [address] Josue Zaidi#: [id number] Admission: 04/26/20 Attend Phys: Jen Wood Discharge: Date of : 52 Report #: [id number] THIS REPORT FOR: //name// cc: Andrés Hutchison MD, K. Gay MD ~ THIS REPORT FOR: //name// CC: Andrés Cordero DATE OF SERVICE: 04/27/2020 HISTORY OF PRESENT ILLNESS: This is a 69-year-old male patient who was seen by me for an unusual spell. The patient says that he starts having hot flashes in his chest then it goes down into his lower extremities. It does not go to the head. He does not pass out. He does not have any dizziness. He has no tonic-clonic activity. After that, he may not remember things properly. In between, his memory is fine. These spells are going on for about 6 weeks. He did have some urinary tract infection recently. He is in the process of moving. It is not clear if that has affected him because he thinks it may have started even before that, but then he may be under stress even before that because of an upcoming move. REVIEW OF SYSTEMS: A 14-point review of systems was carried out. He does have a history of sleep apnea. He does not tolerate CPAP. He has multiple allergies. He has a history of coronary artery disease, but he has been on antiplatelet for that. He does have a history of lung carcinoma. He used to smoke, but does not smoke now. He has a chronic back pain. He does have a history of hypertension and hyperlipidemia and that was his 14-point review of systems. PAST MEDICAL HISTORY: Negative for these kind of spells. These spells happen about once a week. FAMILY HISTORY: Unremarkable. SOCIAL HISTORY: He drinks alcohol. He is somewhat evasive how much alcohol he drinks, but he drinks most of the day. He is pretty defensive about it and both he and the says that he can drink and he may not drink and does not bother him. PHYSICAL EXAMINATION: Indicates that the patient is alert, responsive, able to follow simple and complex command. His speech, concentration, fund of knowledge and memory are at his baseline. Cranial nerve examination 2-12 looks unremarkable. He has symmetrical strength, sensation, reflexes and tone in all 4 extremities. There is no cerebellar sign. I could [place] [address] CONSULTATION Name: RAJENDRA MARTIN MINISTERIO Room: [address] Josue M.R.#: [id number] Admission: 04/26/20 Attend Phys: Jen Wood Discharge: Date of : 52 Report #: [id number] He is moderately built individual who does not have any dysmorphic features of eyes, ears and face. His vision and hearing looks adequate. His blood pressure 122/68, respirations 17, pulse is 90, temperature is 98. His pulses are palpable. Cardiac examination is unremarkable. Respiratory examination is unremarkable. LABORATORY DATA: White count is 14.7, but urine does not show any definite abnormality. IMPRESSION: Pretty difficult to form in this patient. The spells may be psychogenic. I believe he drinks significant amount of alcohol, so he should be on thiamine, which I put him on. He is on Wellbutrin and that can cause seizures and there is some other antidepressants can be tried that will be better. I discussed with him the options. I will suggest considering a psychiatric consult, switch his Wellbutrin and see what they think his spells are. If they do not think his spells are psychogenic then two options are available, first put him on some medication, which will help his anxiety and seizures like Lamictal or Depakote. His anther option is that he sees an epileptologist at or [facility] and they did do a video monitored EEG. We will also look at the patient's MRI. I discussed this plan with the patient and he is agreeable with it. Thank you very much for this referral and we will talk to you about this patient. By: 1254 1345Scot Olguin MD /jennifer
[~2020-04-26 15:36] MED LIST changes: -AZELASTINE205.5 MCG/ NARES; -BAYER CHEWABLE81 MG PO; -COZAAR 50 MG TA50 M1 PO; -ESOMEPRAZOLE MA40 MG PO; -INDERAL LA120 M1 PO; -LIPITOR80 MG PO; -PERCOCET 10-321 EAC1 PO; -PREDNISONE 5 MG5 M1 PO; -PROAIR HFA8.5 GM INH; -SYMBICORT80 MCG/4.1 INH; -TRAZODONE HCL50 MG PO
[2020-04-26 15:45] VITALS: BP 203/120
[2020-04-26 15:56] LABS: ABSOLUTE BASOPHILS 0.1 thou/uL (0.0-0.2); ABSOLUTE LYMPHOCYTES 2.4 thou/uL (0.8-5.3); ABSOLUTE MONOCYTES 0.9 thou/uL (0.0-1.2); ABSOLUTE NEUTROPHILS 11.3 thou/uL (1.6-8.1); BASOPHILS 0.7 %; EOSINOPHILS 0.3 %; HEMATOCRIT 43.4 % (42.0-52.0); HEMOGLOBIN 15.3 gm/dL (14.0-18.0); LYMPHOCYTES 16.3 %; MCH 32.1 pg (26.0-34.0); MCHC 35.3 g/dL (28.0-37.0); MCV 90.9 fL (80.0-100.0); MONOCYTES 6.1 %; NUCLEATED RBCS 0 /100WBC; PLATELET COUNT* 286 thou/uL (150-400); POLYS 76.6 %; RBC 4.77 mil/uL (4.50-6.00); RDW-CV 13.9 % (10.5-14.5); WBC 14.7 thou/uL (4.0-11.0)
[2020-04-26 16:06] LABS: APTT 22.6 Seconds (25.0-31.3); CALCIUM 8.3 mg/dL (8.5-10.1); CREATININE 1.6 mg/dL (0.6-1.3); POTASSIUM 3.4 mmol/L (3.5-5.1); PROTIME 10.2 Seconds (9.20-11.50)
[2020-04-26 16:19] LABS: ALBUMIN 3.8 g/dL (3.4-5.0); CK-MB MASS 4.8 ng/mL (<0.5-3.6); TOTAL BILIRUBIN 0.5 mg/dL (<0.1-1.0); TOTAL PROTEIN 7.2 g/dL (6.4-8.2)
[2020-04-26 16:19] LABS: BE 1.8 mmol/L (-2 to +3); PCO2 35.9 mmHg (35.0-45.0); PO2 77.5 mmHg (75.0-100.0); pH 7.465 (7.340-7.450)
[2020-04-26] MEDS ORDERED: SYMBICORT80 MCG/4.1 INH (16:27)
[2020-04-26] MEDS ORDERED: ESOMEPRAZOLE MA40 MG PO (16:28)
[2020-04-26] MEDS ORDERED: FLOMAX0.4 MG PO (16:32)
[2020-04-26] MEDS ORDERED: TRAZODONE HCL50 MG PO (16:32)
[2020-04-26] MEDS ORDERED: PROAIR HFA8.5 GM INH (16:33)
[2020-04-26] MEDS ORDERED: PERCOCET 10-321 EAC1 PO (16:33)
[2020-04-26] MEDS ORDERED: PREDNISONE 5 MG5 M1 PO (16:34)
[2020-04-26] MEDS ORDERED: LIPITOR80 MG PO (16:34)
[2020-04-26] MEDS ORDERED: SERTRALINE HCL100 MG PO (16:35)
[2020-04-26] MEDS ORDERED: INDERAL LA120 M1 PO (16:35)
[2020-04-26] MEDS ORDERED: AZELASTINE205.5 MCG/ NARES (16:35)
[2020-04-26 19:13] LABS: URINE BILIRUBIN NEGATIVE (Negative); URINE BLOOD NEGATIVE (Negative); URINE CLARITY CLEAR; URINE COLOR YELLOW; URINE GLUCOSE-RANDOM NEGATIVE (Negative); URINE KETONES NEGATIVE (Negative); URINE LEUKOCYTES-REFLEX NEGATIVE (Negative); URINE NITRITE-REFLEX NEGATIVE (Negative); URINE PROTEIN TRACE (Negative); URINE SPECIFIC GRAVITY 1.025 (1.005-1.030)
[2020-04-26 19:58] VITALS: BP 154/68
[2020-04-26 20:00] VITALS: BP 166/85
[2020-04-27] VITALS (7 sets, daily range): BP systolic 101–181; BP diastolic 63–94
[2020-04-27 05:02] LABS: ALBUMIN 3.6 g/dL (3.4-5.0); CALCIUM 8.4 mg/dL (8.5-10.1); CREATININE 1.5 mg/dL (0.6-1.3); POTASSIUM 3.5 mmol/L (3.5-5.1); TOTAL BILIRUBIN 0.8 mg/dL (<0.1-1.0); TOTAL PROTEIN 6.7 g/dL (6.4-8.2)
--- NOTE | 2020-04-27 09:17 | EKG ---
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 : 1950 Requested By: Freddy Fxo Order Number: [id number] MD: Luis Montenegro Measurements Intervals [place] Rate: 115 P: 115 VA: 155 QRS: 72 QRSD: 145 T: 39 QT: 346 QTc: 479 Interpretive Statements Sinus tachycardia Multiple premature complexes, supraven Nonspecific intraventricular conduction delay Artifact in lead(s) II,III,aVF,V1,V2,V3,V4,V5,V6 Compared to ECG 03/14/2020 08:51:52 Sinus rhythm no longer present Right-axis deviation no longer present Electronically Signed On 04-27-2020 9:16:56 CDT by Luis Montenegro [email or web address] <ELECTRONICALLY SIGNED> By: Luis Montenegro MD, [facility] 04/27/20 0916 1546 1546 Luis Montenegro MD, [facility] /EPI
--- NOTE | 2020-04-27 09:17 | EKG ---
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 : 1950 Requested By: Freddy Fox Order Number: [id number] Reading MD: Luis Montenegro Measurements Intervals [place] Rate: 100 P: 35 RI: 45 QRS: 64 QRSD: 110 T: 46 QT: 362 QTc: 467 Interpretive Statements Sinus tachycardia Consider right atrial enlargement Borderline T abnormalities, anterior leads Artifact in lead(s) II,III,aVF,V1,V2,V3,V4,V5,V6 and baseline wander in lead(s) V1 V1,V2 Compared to ECG 04/26/2020 15:46:25 pac's no longer noted Electronically Signed On 04-27-2020 9:17:41 CDT by Luis Montenegro [email or web address] <ELECTRONICALLY SIGNED> By: Luis Montenegro MD, [facility] 04/27/20 0917 1547 1547 Luis Montenegro MD, [facility] /EPI
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
[2020-04-28] VITALS: BP 113/62
[2020-04-28 02:06] LABS: GLYCOHEMOGLOBIN (HGB A1C) 6.1 % (4.8-5.6)
[2020-04-28 04:00] VITALS: BP 109/69
[2020-04-28 05:56] LABS: CALCIUM 8.5 mg/dL (8.5-10.1); CREATININE 1.5 mg/dL (0.6-1.3); POTASSIUM 3.4 mmol/L (3.5-5.1)
[2020-04-28 08:10] VITALS: BP 97/42
[2020-04-28] MEDS ORDERED: VITAMIN B-1100 M1 PO (09:41)
[2020-04-28] MEDS ORDERED: COZAAR 50 MG TA50 M1 PO (09:41)
[2020-04-28] MEDS ORDERED: BAYER CHEWABLE81 MG PO (09:41)
[2020-04-28] MEDS ORDERED: PREDNISONE 5 MG5 M1 PO (09:41)
[2020-04-28 12:04] VITALS: BP 88/48
[2020-04-28 12:53] VITALS: BP 88/48
== END 2020-04-28 15:01 | disposition home or self-care (01) ==
LOC: M.ERS 15:36 → M.TBA-ER 17:52 → M.2W 17:52
PROVIDERS: Family Medicine; ADMIT Internal Medicine; ATTEND Internal Medicine
DX: R41.82 Altered mental status, unspecified (principal); R53.1 Weakness; N17.9 Acute kidney failure, unspecified; I12.9 Hypertensive chronic kidney disease with stage 1 through stage 4 chronic kidney disease, or unspecified chronic kidney disease; N18.3 Chronic kidney disease, stage 3 (moderate); N39.0 Urinary tract infection, site not specified; J44.9 Chronic obstructive pulmonary disease, unspecified; I25.110 Atherosclerotic heart disease of native coronary artery with unstable angina pectoris; E78.5 Hyperlipidemia, unspecified; E03.9 Hypothyroidism, unspecified; E87.3 Alkalosis; M10.9 Gout, unspecified; F10.129 Alcohol abuse with intoxication, unspecified; Z87.891 Personal history of nicotine dependence

== ENCOUNTER 2020-12-13 17:46 | Inpatient (IN) | payer MEDICARE, OTHER ==
[~2020-12-13] VITALS: Ht 175.3 cm; Wt 75.7 kg
--- NOTE | ~2020-12-13 | EMS ---
[address] [address] EMS Patient Care Report Name: JOSS GARCIA Room: [address] ADM IN M.R.#: [id number] Admission: 12/13/20 Attend Phys: Jen Wood Discharge: Date of : 52 Report #: [id number] THIS REPORT FOR: //name// Report Transmitted: 12/13/2020 20:47 EMS Care Summary [facility] [place] Incident [id number] @ 12/13/2020 16:45 Incident Location [address] [place] [address] Patient Joss Garcia Male, 70 Years 1950 Patient Address [address] [id number] Patient History Hyperlipidemia,Chronic Obstructive Pulmonary Disease (COPD),Hypothyroidism, unspecified,Presence of coronary angioplasty implant and graft,Unspecified dementia, Patient Allergies , Chief Complaint Altered Level of Consciousness Disposition Transported No Lights/[place] Dispatch Reason Sick Person Transported To [facility] Narrative [facility] WAS DISPATCHED EMERGENT FOR A 70 Y/O MALE WHO IS ALTERED. UPON ARRIVAL ON SCENE, THE PT WAS FOUND SITTING ON HIS BED IN THE CARE OF FAMILY AND IFD. THE PT APPEARED PALE, HOT, DRY, AWAKE, AND ALERT. THE PT IS A GCS OF 13, A&Ox1. THE PT'S FOUND THE PT NOT ACTING RIGHT AFTER GETTING HOME FROM THE STORE. [address] [place] [address] EMS Patient Care Report Name: JOSS GARCIA Room: [address] ADM IN M.R.#: [id number] Admission: 12/13/20 Attend Phys: Jen Wood Discharge: Date of : 52 Report #: [id number] THE PT WAS LETHARGIC AND HAD A FEVER. THE PT HAS NOT BEEN SICK LATELY. THE PT DID HAVE A CYSTOSCOPY WITHIN THE LAST WEEK TO SEE IF THE PT HAS A KIDNEY STONE DUE TO URINARY RETENTION. THE PT'S STROKE SCALE WAS NEGATIVE. THE PT APPEARED VERY OVERWHELMED BY ALL OF THE EMS RESPONDERS. [facility] WAS DELAYED ON SCENE DUE TO TRYING TO TALK THE PT INTO GOING TO THE HOSPITAL AND GOING TO THE COT. THE PT AT ONE POINT TRIED TO SHUT HIS BEDROOM DOOR AND GO TO SLEEP. THE PT WAS FINALLY CONVINCED TO GO TO THE ER. THE PT WAS ASSISTED TO THE COT AND SAT DOWN. ONCE IN THE AMBULANCE, A SET OF VITALS, BGL, IV, BLOOD DRAW, 12 LEAD, AND LACTATED RINGERS WAS DONE (SEE REPORT). PT'S EYES WERE KULDIP, LUNG SOUNDS CLEAR, AND NO SIGNS OF DCAP-BTLS. THE PT WAS VERY COOPERATIVE AND SEEMED TO BE RESPONDING BETTER AFTER BEING IN THE AMBULANCE. [facility] WENT EN ROUTE NON-EMERGENT TO [facility] ER. A RADIO REPORT WAS GIVEN EN ROUTE. THE PT REMAINED STABLE EN ROUTE. THE PT SEEMED TO BE IMPROVING EN ROUTE, HE BECAME MORE TALKATIVE, COULD MAINTAIN A CONVERSATION AND ANSWER SOME QUESTIONS NOW. THE PT IS NOW A GCS OF 14. THE PT WAS ALSO NO LONGER REPEATING THE SAME PHRASE BACK TO EMS. THE PT WAS RECENTLY DIAGNOSED WITH DEMENTIA. UPON ARRIVAL ON SCENE, THE PT WAS UNLOADED AND TAKEN TO THE ER BED. A HAND OFF REPORT WAS GIVEN. THE RECIEVING RN SIGNED FOR THE PT. [facility] WAS THEN CLEARED AND RETURNED TO SERVICE. Initial Vitals @17:17 @17:24 @17:25 @17:26 @17:14P: 90,R: 22,BP: 152/90, @17:24P: 88,R: 20,BP: 148/91, @17:34P: 88,R: 12,BP: 143/79, @17:37P: 84,R: 16,BP: 155/91, @17:50FxLF9: 30, @17:31ImKL6: 23, @17:53DeII6: 23, @17:14GCS: 13, @17:24GCS: 13, @17:34GCS: 14, @17:37GCS: 14, Assessments @16:54MENTAL:SKIN:HEENT:LUNG SOUNDS:ABDOMEN:PELVIS//GI:EXTREMITIES:PULSE:NEURO: Impression Altered Mental Status Procedures @17:17 cc () Site: Antecubital-LeftResponse: UnchangedSucceeded@17:17 cc () [place] [address] EMS Patient Care Report Name: JOSS GARCIA Room: [address] IN .R.#: [id number] Admission: 12/13/20 Attend Phys: Jen Wood Discharge: Date of : 52 Report #: [id number] Response: UnchangedSucceeded@17:24Digital respired carbon dioxide monitoring (regime/therapy)Response: UnchangedSucceeded@17:28Digital respired carbon dioxide monitoring (regime/therapy)Response: UnchangedSucceeded@17:34Digital respired carbon dioxide monitoring (regime/therapy)Response: UnchangedSucceeded@17:173-Lead ECGResponse: UnchangedSucceeded@17:2412-Lead ECGResponse: UnchangedSucceeded@17:2512-Lead ECGResponse: UnchangedSucceeded@17:2612-Lead ECGResponse: UnchangedSucceeded Timeline 12:54,Call Received 16:42,Dispatch Notified 16:42,Psap Call 16:45,Dispatched 16:45,En Route 16:50,On Scene 16:54,At Patient 17:14,BP: 152/90 M,PULSE: 90,RR: 22 R,SPO2: Ox,ETCO2: ,BG: ,PAIN: ,GCS: , 17:14,BP: / M,PULSE: ,RR: R,SPO2: Ox,ETCO2: ,BG: ,PAIN: ,GCS: 13, 17:17, cc Site: Antecubital-Left,Response: UnchangedSucceeded, 17:17, cc Site: ,Response: UnchangedSucceeded, 17:17,3-Lead ECG,Response: UnchangedSucceeded, 17:17,BP: / M,PULSE: ,RR: R,SPO2: Ox,ETCO2: ,BG: ,PAIN: ,GCS: , 17:24,Digital respired carbon dioxide monitoring (regime/therapy),Response: UnchangedSucceeded, 17:24,12-Lead ECG,Response: UnchangedSucceeded, 17:24,BP: / M,PULSE: ,RR: R,SPO2: Ox,ETCO2: ,BG: ,PAIN: ,GCS: , 17:24,BP: 148/91 M,PULSE: 88,RR: 20 R,SPO2: Ox,ETCO2: ,BG: ,PAIN: ,GCS: , 17:24,BP: / M,PULSE: ,RR: R,SPO2: Ox,ETCO2: 30 ,BG: ,PAIN: ,GCS: , 17:24,BP: / M,PULSE: ,RR: R,SPO2: Ox,ETCO2: ,BG: ,PAIN: ,GCS: 13, 17:25,12-Lead ECG,Response: UnchangedSucceeded, 17:25,BP: / M,PULSE: ,RR: R,SPO2: Ox,ETCO2: ,BG: ,PAIN: ,GCS: , 17:26,12-Lead ECG,Response: UnchangedSucceeded, 17:26,BP: / M,PULSE: ,RR: R,SPO2: Ox,ETCO2: ,BG: ,PAIN: ,GCS: , 17:26,Depart Scene 17:28,Digital respired carbon dioxide monitoring (regime/therapy),Response: UnchangedSucceeded, 17:28,BP: / M,PULSE: ,RR: R,SPO2: Ox,ETCO2: 23 ,BG: ,PAIN: ,GCS: , 17:34,Digital respired carbon dioxide monitoring (regime/therapy),Response: UnchangedSucceeded, 17:34,BP: 143/79 M,PULSE: 88,RR: 12 R,SPO2: Ox,ETCO2: ,BG: ,PAIN: ,GCS: , 17:34,BP: / M,PULSE: ,RR: R,SPO2: Ox,ETCO2: 23 ,BG: ,PAIN: ,GCS: , 17:34,BP: / M,PULSE: ,RR: R,SPO2: Ox,ETCO2: ,BG: ,PAIN: ,GCS: 14, 17:37,BP: 155/91 M,PULSE: 84,RR: 16 R,SPO2: Ox,ETCO2: ,BG: ,PAIN: ,GCS: , 17:37,BP: / M,PULSE: ,RR: R,SPO2: Ox,ETCO2: ,BG: ,PAIN: ,GCS: 14, 17:43,At Destination 18:01,Call Closed [address] [address] EMS Patient Care Report Name: JOSS GARCIA Room: [address] IN [facility]#: [id number] Admission: 12/13/20 Attend Phys: Jen Wood Discharge: Date of : 52 Report #: [id number] Disclaimer v1.1 Copyright 202 [employer] This EMS Care Summary contains data elements from the applicable legal record (which may be displayed differently). It is designed to provide pertinent information for the following purposes: continuity of care, clinical quality, and state data reporting. The complete legal record is available to ED staff and administrators of the receiving hospital in [employer] Patient Tracker. All data is provided "as is."
[~2020-12-13 17:46] MED LIST changes: +AZELASTINE205.5 MCG/ NARES; +BAYER CHEWABLE81 MG PO; +COZAAR 50 MG TA50 M1 PO; +ESOMEPRAZOLE MA40 MG PO; +INDERAL LA120 M1 PO; +LIPITOR80 MG PO; +PERCOCET 10-321 EAC1 PO; +PREDNISONE 5 MG5 M1 PO; +PROAIR HFA8.5 GM INH; +SYMBICORT80 MCG/4.1 INH; +TRAZODONE HCL50 MG PO
[2020-12-13 17:47] VITALS: BP 155/83
[2020-12-13] MEDS ORDERED: LEVOXYL175 MCG PO (18:01)
[2020-12-13] MEDS ORDERED: NITROSTAT0.4 M1 (18:02)
[2020-12-13] MEDS ORDERED: TRIAMTERENE/HCT1 CA1 PO (18:03)
[2020-12-13] MEDS ORDERED: ARICEPT10 MG PO (18:03)
[2020-12-13] MEDS ORDERED: DULOXETINE HCL30 MG PO (18:04)
[2020-12-13] MEDS ORDERED: MIRTAZAPINE15 M2 PO (18:04)
[2020-12-13] MEDS ORDERED: SUPREP BOWEL P354 ML PO (18:05)
[2020-12-13 18:09] LABS: ABSOLUTE BASOPHILS 0.1 thou/uL (0.0-0.2); ABSOLUTE EOSINOPHILS 0.2 thou/uL (0.0-0.7); ABSOLUTE LYMPHOCYTES 2.6 thou/uL (0.8-5.3); ABSOLUTE MONOCYTES 0.4 thou/uL (0.0-1.2); ABSOLUTE NEUTROPHILS 8.6 thou/uL (1.6-8.1); BASOPHILS 0.8 %; EOSINOPHILS 1.4 %; HEMATOCRIT 50.2 % (42.0-52.0); HEMOGLOBIN 16.8 gm/dL (14.0-18.0); LYMPHOCYTES 22.2 %; MCH 30.8 pg (26.0-34.0); MCHC 33.5 g/dL (28.0-37.0); MCV 92.2 fL (80.0-100.0); MPV 8.5 fl. (7.2-11.1); NUCLEATED RBCS 0 /100WBC; PLATELET COUNT* 273 thou/uL (150-400); POLYS 72.6 %; RBC 5.45 mil/uL (4.50-6.00); RDW-CV 14.8 % (10.5-14.5); WBC 11.9 thou/uL (4.0-11.0)
[2020-12-13 18:15] LABS: URINE BLOOD NEGATIVE (Negative); URINE CLARITY CLEAR; URINE COLOR YELLOW; URINE GLUCOSE-RANDOM NEGATIVE (Negative); URINE KETONES NEGATIVE (Negative); URINE LEUKOCYTES-REFLEX NEGATIVE (Negative); URINE NITRITE-REFLEX NEGATIVE (Negative); URINE PROTEIN NEGATIVE (Negative); URINE SPECIFIC GRAVITY 1.025 (1.005-1.030); URINE UROBILINOGEN 0.2 E.U./dl (0.2-1.0)
[2020-12-13 18:17] LABS: CALCIUM 8.8 mg/dL (8.5-10.1); CREATININE 1.2 mg/dL (0.6-1.3); POTASSIUM 3.7 mmol/L (3.5-5.1)
[2020-12-13 18:19] LABS: ICTOTEST (BILI CONFIRMATORY) Negative (Negative); URINE BILIRUBIN 1+ (Negative)
[2020-12-13 18:20] LABS: APTT 23.4 Seconds (25.0-31.3); PROTIME 10.6 Seconds (9.20-11.50)
[2020-12-13 18:28] LABS: ALBUMIN 3.9 g/dL (3.4-5.0); TOTAL BILIRUBIN 0.8 mg/dL (<0.1-1.0); TOTAL PROTEIN 7.2 g/dL (6.4-8.2)
[2020-12-13 20:25] VITALS: BP 140/72
[2020-12-13 20:41] VITALS: BP 135/66
[2020-12-13] MEDS ORDERED: WELLBUTRIN SR150 MG PO (22:33)
[2020-12-13] MEDS ORDERED: NEXIUM40 M2 PO (22:34)
[2020-12-13] MEDS ORDERED: SINGULAIR 10 MG10 M1 PO (22:34)
[2020-12-13] MEDS ORDERED: MYRBETRIQ50 MG PO (22:34)
[2020-12-14] VITALS (7 sets, daily range): BP systolic 12–138; BP diastolic 73–750
--- NOTE | 2020-12-14 10:55 | EKG ---
[place] [address] ELECTROCARDIOGRAM REPORT Name: RAJENDRA MARTIN Room: [address] ADM IN M.R.#: [id number] Admission: 12/13/20 Attend Phys: Jim Cordero Discharge: Date of : 52 Date of Service: 12/13/201820 Report #: [id number] THIS REPORT FOR: //name// [facility] ED Test Date: 2020-12-13 Test Time: 18:21:30 Pat Name: RAJENDRA MARTIN Department: Room: [facility] Gender: M Portrait Consultant: ADELA : 1950 Requested By: Rudy Box Order Number: [id number] MD: Antwan Rivers Measurements Intervals [place] Rate: 84 P: 70 ME: 159 QRS: 98 QRSD: 101 T: 49 QT: 401 QTc: 475 Interpretive Statements Sinus rhythm Atrial premature complexes Right axis deviation Borderline low voltage, extremity leads Compared to ECG 04/26/2020 15:47:32 Atrial premature complex(es) now present Right-axis deviation now present Sinus tachycardia no longer present T-wave abnormality no longer present Electronically Signed On 12-14-2020 10:55:16 CDT by Antwan Rivers [email or web address] <ELECTRONICALLY SIGNED> By: Antwan Rivers MD, [facility] 12/14/20 1055 20 20 Antwan Rivers MD, [facility] /EPI
--- NOTE | 2020-12-14 11:09 | 2DMMODE ---
[place] [address] 2 D/M-MODE ECHOCARDIOGRAM Name: RAJENDRA MARTIN Room: [address] IN [place]#: [id number] Admission: 12/13/20 Attend Phys: Jim Cordero Discharge: Date of : 52 Date of Service: 12/14/20 1109 Report #: [id number] THIS REPORT FOR: cc: Andrés Hutchison MD, K. Gay MD Holkins, John M. MD [facility] ~ APPROVED REPORT Study performed: 12/14/2020 09:54:15 EXAM: Comprehensive 2D, Doppler, and color-flow Echocardiogram Patient Location: In-Patient Room #: 202 Status: routine BSA: 1.91 HR: 86 bpm BP: 122/85 mmHg Rhythm: NSR Other Information Study Quality: Good Indications Syncope 2D Dimensions IVSd: 11.10 (7-11mm) LVOT Diam: 21.53 (18-24mm) LVDd: 35.68 mm PWd: 10.96 (7-11mm) Ascending Ao: 32.54 (22-36mm) LVDs: 20.67 (25-40mm) Aortic Root: 34.32 mm Volumes Left Atrial Volume (Systole) LA ESV Index: 14.40 mL/m2 Aortic Valve AoV Peak Javier.: 1.55 m/s AO Peak Gr.: 9.64 mmHg LVOT Max P.92 mmHg AO Mean Gr.: 5.20 mmHg LVOT Mean P.48 mmHg LVOT Max V: 1.11 m/s AO V2 VTI: 31.32 cm LVOT Mean V: 0.73 m/s DANY (VTI): 2.66 cm2 LVOT V1 VTI: 22.91 [place] [address] 2 D/M-MODE ECHOCARDIOGRAM Name: RAJENDRA MARTIN Room: [address] IN [facility].#: [id number] Admission: 12/13/20 Attend Phys: Jim Cordero Discharge: Date of : 52 Date of Service: 12/14/20 1109 Report #: [id number] Mitral Valve E/A Ratio: 0.71 MV Decel. Time: 367.88 ms MV E Max Javier.: 0.75 m/s MV PHT: 106.69 ms MVA (PHT): 2.06 cm2 TDI E/Lateral E': 9.38 E/Medial E': 9.38 Medial E' Javier.: 0.08 m/s Lateral E' Javier.: 0.08 m/s Pulmonary Valve PV Peak Javier.: 0.90 m/s PV Peak Gr.: 3.23 mmHg Left Ventricle The left ventricle is normal size. There is normal LV segmental wall motion. There is normal left ventricular wall thickness. Left ventricular systolic function is normal. The left ventricular ejection fraction is within the normal range. LVEF is 65-70%. Grade I - abnormal relaxation pattern. Right Ventricle The right ventricle is normal size. The right ventricular systolic function is normal. Atria The left atrium size is normal. The right atrium size is normal. Aortic Valve Mild aortic valve sclerosis. No aortic regurgitation is present. There is no aortic valvular stenosis. Mitral Valve The mitral valve is normal in structure. Trace mitral regurgitation. No evidence of mitral valve stenosis. Tricuspid Valve The tricuspid valve is normal in structure. Unable to assess PA pressure. Trace tricuspid regurgitation. Pulmonic Valve The pulmonary valve is normal in structure. There is no pulmonic [place] [address] 2 D/M-MODE ECHOCARDIOGRAM Name: RAJENDRA MARTIN MINISTERIO Room: [address] IN [facility]#: [id number] Admission: 12/13/20 Attend Phys: Jim Cordero Discharge: Date of : 52 Date of Service: 12/14/20 1109 Report #: [id number] Great Vessels The aortic root is normal in size. IVC is normal in size and collapses >50% with inspiration. Pericardium There is no pericardial effusion. <Conclusion> The left ventricle is normal size. There is normal left ventricular wall thickness. Left ventricular systolic function is normal. The left ventricular ejection fraction is within the normal range. LVEF is 65-70%. Grade I - abnormal relaxation pattern. The right ventricle is normal size. The left atrium size is normal. Mild aortic valve sclerosis. No aortic regurgitation is present. There is no aortic valvular stenosis. The mitral valve is normal in structure. Trace mitral regurgitation. The tricuspid valve is normal in structure. IVC is normal in size and collapses >50% with inspiration. There is no pericardial effusion. There is normal LV segmental wall motion. <ELECTRONICALLY SIGNED> By: Antwan Rivers MD, FACC 12/14/20 1109 1109 1109 Antwan Rivers MD, FACC /INF
[2020-12-14] MEDS ORDERED: MORPHINE 00.5 MG/1 M PO (16:34)
[2020-12-15 02:06] LABS: GLYCOHEMOGLOBIN (HGB A1C) 5.2 % (4.8-5.6)
[2020-12-15 04:32] VITALS: BP 121/72; BP 148/86
[2020-12-15 05:41] LABS: ABSOLUTE BASOPHILS 0.1 thou/uL (0.0-0.2); ABSOLUTE EOSINOPHILS 0.6 thou/uL (0.0-0.7); ABSOLUTE LYMPHOCYTES 2.5 thou/uL (0.8-5.3); ABSOLUTE MONOCYTES 0.5 thou/uL (0.0-1.2); ABSOLUTE NEUTROPHILS 4.9 thou/uL (1.6-8.1); BASOPHILS 1.4 %; EOSINOPHILS 7.2 %; HEMATOCRIT 47.3 % (42.0-52.0); HEMOGLOBIN 16.3 gm/dL (14.0-18.0); LYMPHOCYTES 28.8 %; MCH 31.3 pg (26.0-34.0); MCHC 34.4 g/dL (28.0-37.0); MCV 90.9 fL (80.0-100.0); MONOCYTES 5.7 %; MPV 8.3 fl. (7.2-11.1); NUCLEATED RBCS 0 /100WBC; PLATELET COUNT* 233 thou/uL (150-400); POLYS 56.9 %; RBC 5.21 mil/uL (4.50-6.00); RDW-CV 14.7 % (10.5-14.5); WBC 8.7 thou/uL (4.0-11.0)
[2020-12-15 05:52] LABS: ALBUMIN 3.2 g/dL (3.4-5.0); CREATININE 1.2 mg/dL (0.6-1.3); MAGNESIUM 1.8 mg/dL (1.8-2.4); TOTAL BILIRUBIN 0.7 mg/dL (<0.1-1.0); TOTAL PROTEIN 6.3 g/dL (6.4-8.2)
[2020-12-15 06:16] LABS: POTASSIUM 2.9 mmol/L (3.5-5.1)
[2020-12-15 07:45] VITALS: BP 148/78
[2020-12-15] MEDS ORDERED: CEFDINIR300 MG PO (08:37)
[2020-12-15] MEDS ORDERED: AZITHROMYCIN 2250 MG PO (08:37)
[2020-12-15 11:53] VITALS: BP 125/65
== END 2020-12-15 12:35 | disposition home or self-care (01) | DRG 177 ==
LOC: M.ERS 17:46 → M.TBA-ER 18:53 → M.2W 18:53
PROVIDERS: Emergency Medicine Emergency Medical Services; Internal Medicine; ADMIT Internal Medicine; ATTEND Internal Medicine
DX: J69.0 Pneumonitis due to inhalation of food and vomit (principal); J96.01 Acute respiratory failure with hypoxia; G92 Toxic encephalopathy; R65.10 Systemic inflammatory response syndrome (SIRS) of non-infectious origin without acute organ dysfunction; E87.2 Acidosis; R73.9 Hyperglycemia, unspecified; I10 Essential (primary) hypertension; M54.89 Other dorsalgia; M10.9 Gout, unspecified; I25.10 Atherosclerotic heart disease of native coronary artery without angina pectoris; J44.9 Chronic obstructive pulmonary disease, unspecified; Z20.822 Contact with and (suspected) exposure to COVID-19; Z92.3 Personal history of irradiation; Z95.5 Presence of coronary angioplasty implant and graft; Z88.5 Allergy status to narcotic agent; Z88.8 Allergy status to other drugs, medicaments and biological substances; Z91.040 Latex allergy status; Z88.1 Allergy status to other antibiotic agents; Z79.82 Long term (current) use of aspirin; Z79.899 Other long term (current) drug therapy; Z87.891 Personal history of nicotine dependence

== ENCOUNTER 2021-01-25 13:36 | Emergency (ER) | payer MEDICARE, OTHER ==
[~2021-01-25] VITALS: Ht 175.3 cm; Wt 72.6 kg
[~2021-01-25 13:36] MED LIST changes: +ARICEPT10 MG PO; +DULOXETINE HCL30 MG PO; +LEVOXYL175 MCG PO; +MIRTAZAPINE15 M2 PO; +MORPHINE 00.5 MG/1 M PO; +MYRBETRIQ50 MG PO; +NEXIUM40 M2 PO; +NITROSTAT0.4 M1; +SUPREP BOWEL P354 ML PO; +TRIAMTERENE/HCT1 CA1 PO; +WELLBUTRIN SR150 MG PO
[2021-01-25 14:36] LABS: ABSOLUTE BASOPHILS 0.2 thou/uL (0.0-0.2); ABSOLUTE EOSINOPHILS 0.5 thou/uL (0.0-0.7); ABSOLUTE LYMPHOCYTES 2.9 thou/uL (0.8-5.3); ABSOLUTE MONOCYTES 0.8 thou/uL (0.0-1.2); BASOPHILS 1.3 %; EOSINOPHILS 3.9 %; HEMATOCRIT 49.8 % (42.0-52.0); HEMOGLOBIN 16.5 gm/dL (14.0-18.0); LYMPHOCYTES 23.7 %; MCHC 33.1 g/dL (28.0-37.0); MCV 93.5 fL (80.0-100.0); MONOCYTES 6.3 %; MPV 7.3 fl. (7.2-11.1); NUCLEATED RBCS 0 /100WBC; PLATELET COUNT* 285 thou/uL (150-400); POLYS 64.8 %; RBC 5.32 mil/uL (4.50-6.00); RDW-CV 15.3 % (10.5-14.5); WBC 12.3 thou/uL (4.0-11.0)
[2021-01-25 14:41] LABS: CALCIUM 8.8 mg/dL (8.5-10.1); CREATININE 1.6 mg/dL (0.6-1.3); POTASSIUM 4.1 mmol/L (3.5-5.1)
[2021-01-25 14:45] LABS: ALBUMIN 3.8 g/dL (3.4-5.0); TOTAL BILIRUBIN 0.5 mg/dL (<0.1-1.0); TOTAL PROTEIN 6.8 g/dL (6.4-8.2)
[2021-01-25 16:34] VITALS: BP 142/81
--- NOTE | 2021-01-28 15:12 | EKG ---
[place] [address] ELECTROCARDIOGRAM REPORT Name: RAJENDRA MARTIN Room: [facility]#: [id number] Admission: 01/25/21 Attend Phys: Discharge: 01/25/21 Date of : 52 Date of Service: 01/25/21 1418 Report #: [id number] THIS REPORT FOR: //name// [facility] ED Test Date: 2021-01-25 Test Time: 14:18:18 Pat Name: RAJENDRA MARTIN Department: Room: Gender: Development Disability Specialist: : 1950 Requested By: Rudy Box Order Number: [id number] MD: Antwan Rivers Measurements Intervals [place] Rate: 76 P: 100 PA: 140 QRS: 100 QRSD: 94 T: 62 QT: 377 QTc: 424 Interpretive Statements Sinus rhythm Right axis deviation Compared to ECG 12/13/2020 18:21:30 Atrial premature complex(es) no longer present Electronically Signed On 01-28-2021 15:12:39 CDT by Antwan Rivers [email or web address] <ELECTRONICALLY SIGNED> By: Antwan Rivers MD, [facility] 01/28/21 1512 1418 1418 Antwan Rivers MD, [facility] /EPI
== END 2021-01-25 16:35 | disposition home or self-care (01) ==
LOC: M.ERS 13:36
PROVIDERS: Emergency Medicine Emergency Medical Services
DX: S20.211A Contusion of right front wall of thorax, initial encounter (principal); I25.10 Atherosclerotic heart disease of native coronary artery without angina pectoris; G89.29 Other chronic pain; Z91.040 Latex allergy status; Z88.1 Allergy status to other antibiotic agents; Z88.5 Allergy status to narcotic agent; W18.39XA Other fall on same level, initial encounter; Y93.89 Activity, other specified; Y92.89 Other specified places as the place of occurrence of the external cause; Y99.8 Other external cause status